=== PATIENT | male | born 1985 | race Caucasian/White ===

== ENCOUNTER 2017-03-26 11:36 | Emergency (ER) | payer OTHER ==
[2017-03-26] MEDS ORDERED: Albuterol-Ipratrop 3 mg / 0.5 (3 ml) UD ONE (11:50)
[2017-03-26 11:51] VITALS: BMI 48.6
[2017-03-26 11:54] VITALS: TEMP 98.5
[2017-03-26] MEDS: Albuterol-Ipratrop 3 mg / 0.5 (3 ml) UD IH SCH ×3 (11:55→12:26)
--- NOTE | 2017-03-26 12:07 | ED PDOC ---
Arrival/HPI - General Chief Complaint: Cough, Cold, Congestion Time Seen by Provider: 03/26/17 11:50 Historian: Patient - History of Present Illness Narrative History of Present Illness (Text): 03/26/17 12:04 A 31 year old male with no significant past medical history, presents tot he emergency department with over 1 week duration shortness of breath and cough. The patient states that he has not had a history of asthma. The patient denies fevers, chills, headache, dizziness, chest pain, abdominal pain, nausea, vomiting, diarrhea, back pain, neck pain, urinary/bowel changes, or any other complaint. Time/Duration: > week Symptom Onset: Sudden Symptom Course: Unchanged Activities at Onset: Rest, Light Context: Home Past Medical History - Provider Review Nursing Documentation Reviewed: Yes - Infectious Disease Hx of Infectious Diseases: None - Tetanus Immunization Tetanus Immunization: Unknown - Pulmonary Hx Asthma: Yes - Psychiatric Hx Depression: No Hx Emotional Abuse: No Hx Physical Abuse: No Hx Substance Use: No - Surgical History Hx Cholecystectomy: Yes - Anesthesia Hx Anesthesia: Yes Hx Anesthesia Reactions: No Hx Malignant Hyperthermia: No - Suicidal Assessment Feels Threatened In Home Enviroment: No Family/Social History - Physician Review Nursing Documentation Reviewed: Yes Family/Social History: No Known Family HX Smoking Status: Current Some Days Smoker Hx Alcohol Use: Yes Frequency of alcohol use: Socially Hx Substance Use: No Allergies/Home Meds Allergies/Adverse Reactions: Allergies No Known Allergies Allergy (Verified 03/26/17 11:55) Review of Systems - Physician Review All systems were reviewed & negative as marked: Yes - Review of Systems Constitutional: absent: Fevers Respiratory: SOB, Cough Cardiovascular: absent: Chest Pain Gastrointestinal: absent: Abdominal Pain, Stool Changes, Diarrhea, Nausea, Vomiting Genitourinary Male: absent: Urinary Output Changes Musculoskeletal: absent: Back Pain, Neck Pain Neurological: absent: Headache, Dizziness Physical Exam Vital Signs Reviewed: Yes Vital Signs Temp Pulse Resp BP Pulse Ox 03/26/17 14:22 78 18 133/78 96 03/26/17 13:38 88 17 135/84 94 L 03/26/17 11:54 21 91 L 03/26/17 11:53 98.5 F 94 H 21 98/60 L 91 L 03/26/17 11:36 98.3 F 95 H 22 98/68 L 91 L Temperature: Afebrile Blood Pressure: Hypotensive Pulse: Tachycardic Respiratory Rate: Normal Appearance: Positive for: Well-Appearing, Non-Toxic, Comfortable Pain Distress: None Mental Status: Positive for: Alert and Oriented X 3 - Systems Exam Head: Present: Atraumatic, Normocephalic Extroacular Muscles: Present: EOMI Conjunctiva: Present: Normal Mouth: Present: Moist Mucous Membranes Neck: Present: Normal Range of Motion Respiratory/Chest: Present: Wheezes Cardiovascular: Present: Regular Rate and Rhythm, Normal S1, S2. No: Murmurs Abdomen: Present: Normal Bowel Sounds. No: Tenderness, Distention, Peritoneal Signs Back: Present: Normal Inspection Upper Extremity: Present: Normal Inspection. No: Cyanosis, Edema Lower Extremity: Present: Normal Inspection. No: Edema Neurological: Present: GCS=15, CN II-XII Intact, Speech Normal Skin: Present: Warm, Dry, Normal Color. No: Rashes Psychiatric: Present: Alert, Oriented x 3, Normal Insight, Normal Concentration Medical Decision Making ED Course and Treatment: 03/26/17 12:08 Impression: A 31 year old male presents to the emergency department with over 1 week duration cough and shortness of breath. Plan: -- Chest X-ray -- Labs -- Urinalysis -- Duoneb and SOLU-Medrol -- Reassess and disposition Prior Visits: Notes and results from previous visits were reviewed. Patient was last seen in the emergency department on 11/10/12. The patient was evaluated in the emergency department for nausea, vomiting, diarrhea. The patient was discharged home. Progress Notes: 03/26/17 13:40: Patient was reassessed and states that he feels much better. The wheezing has improved, but has not fully resolved. Admission was offered, but the patient declined because he states he has to work. O2 status: 95%. CHEST X-RAY Dictator : Shanna Marte MD Report Date : 03/26/2017 13:22:58 IMPRESSION: No active pulmonary disease. - Lab Interpretations Lab Results: 03/26/17 12:18 03/26/17 12:18 Lab Results 03/26/17 12:18: Sodium 142, Potassium 4.1, Chloride 107, Carbon Dioxide 23, Anion Gap 16, BUN 16, Creatinine 0.8, Est GFR ( Amer) > 60, Est GFR (Non- Af Amer) > 60, Random Glucose 103, Calcium 9.5, Total Bilirubin 2.0 H, AST 36, ALT 69 H, Alkaline Phosphatase 75, Total Protein 8.3, Albumin 4.5, Globulin 3.8 , Albumin/Globulin Ratio 1.2 03/26/17 12:18: WBC 10.4, RBC 5.55, Hgb 16.5, Hct 50.6, MCV 91.2, MCH 29.7, MCHC 32.6, RDW 13.5, Plt Count 303, MPV 11.7 H, Gran % 57.4, Lymph % (Auto) 30.1 , [place] % (Auto) 4.4, Eos % (Auto) 7.8 H, Baso % (Auto) 0.3, Gran # 5.94, Lymph # 3.1, [place] # 0.5, Eos # 0.8 H, Baso # 0.03 I have reviewed the lab results: Yes - RAD Interpretation Radiology Orders: 03/26/17 11:57 CHEST PORTABLE [RAD] Stat - Medication Orders Current Medication Orders: Discontinued Medications Albuterol/Ipratropium (Duoneb 3 Mg/0.5 Mg (3 Ml) Ud) 3 ml IH Q15M STEW Stop: 03/26/17 12:31 Last Admin: 03/26/17 12:26 Dose: 3 ml Methylprednisolone (Solu-Medrol) 125 mg IVP STAT STA Stop: 03/26/17 11:58 Last Admin: 03/26/17 12:10 Dose: 125 mg IVP Administration Document 03/26/17 12:10 ELVIRA (Rec: 03/26/17 12:10 ELVIRA [id number]) Charges for Administration # of IVP Administrations 1 - Scribe Statement The provider has reviewed the documentation as recorded by the Shashankibyanet Corbett Provider Scribe Attestation: All medical record entries made by the Scribe were at my direction and personally dictated by me. I have reviewed the chart and agree that the record accurately reflects my personal performance of the history, physical exam, medical decision making, and the department course for this patient. I have also personally directed, reviewed, and agree with the discharge instructions and disposition. Disposition/Present on Arrival - Present on Arrival Any Indicators Present on Arrival: No History of DVT/PE: No History of Uncontrolled Diabetes: No Urinary Catheter: No History of Decub. Ulcer: No History Surgical Site Infection Following: None - Disposition Have Diagnosis and Disposition been Completed?: Yes Diagnosis: Asthmatic bronchitis Disposition: HOME/ ROUTINE Disposition Time: 04:00 Condition: STABLE Discharge Instructions (ExitCare): Asthma (ED), Acute Bronchitis (ED) Additional Instructions: please follow up with your doctor. return to er with wrosening symptoms or concerns. Prescriptions: Albuterol 0.083% [Albuterol 0.083% Inhal Sharla (2.5 mg/3 ml) UD] 2.5 mg IH Q4 PRN #30 neb PRN Reason: Wheezing Nebulizer [Aeroeclipse II] 1 each MC Q4 PRN #1 each PRN Reason: Wheezing Nebulizer Accessories [Adult Aerosol Mask] 1 each MC Q4 PRN #1 each PRN Reason: Wheezing Prednisone 50 mg PO DAILY #5 tablet Referrals: Matilde Lewis MD [Primary Care Provider] - Follow up with primary Forms: [employer] (Egyptian)
[2017-03-26 12:51] LABS: BASO # 0.03 K/mm3 (0.0-2.0); BASO % 0.3 % (0.0-3.0); EOS # 0.8 (0.0-0.7); EOS % 7.8 % (1.5-5.0); GRAN # 5.94 (1.4-6.5); GRAN % 57.4 % (50.0-68.0); HEMATOCRIT 50.6 % (42.0-52.0); LYMPH # 3.1 (1.2-3.4); LYMPH % 30.1 % (22.0-35.0); MEAN CELL VOLUME 91.2 fl (80.0-105.0); MEAN CORPUSCULAR HEMOGLOBIN 29.7 pg (25.0-35.0); MEAN CORPUSCULAR HGB CONC 32.6 g/dl (31.0-37.0); MEAN PLATELET VOLUME 11.7 fl (7.0-11.0); MONO # 0.5 (0.1-0.6); MONO % 4.4 % (1.0-6.0); RED CELL DISTRIBUTION WIDTH 13.5 % (11.5-14.5); WHITE BLOOD COUNT 10.4 10^3/ul (4.5-11.0)
[2017-03-26 12:55] LABS: ALB/GLOB RATIO 1.2 (1.1-1.8); ALKALINE PHOSPHATASE 75 U/L (38-126); ALT/SGPT 69 U/L (7-56); AST/SGOT 36 U/L (17-59); BLOOD UREA NITROGEN 16 mg/dL (7-21); CALCIUM 9.5 mg/dL (8.4-10.5); CARBON DIOXIDE 23 mmol/L (21-33); CHLORIDE 107 mmol/L (98-107); GFR AFRICAN-AMERICAN > 60; GLUCOSE,RANDOM 103 mg/dL (70-110); POTASSIUM 4.1 mmol/L (3.6-5.0); SODIUM 142 mmol/L (132-148); TOTAL PROTEIN 8.3 g/dL (5.8-8.3)
--- NOTE | 2017-03-26 13:24 | RAD ---
HISTORY: cough COMPARISON: No prior. FINDINGS: LUNGS: The lungs are well inflated and clear. PLEURA: No significant pleural effusion identified, no pneumothorax apparent. CARDIOVASCULAR: Normal. OSSEOUS STRUCTURES: No significant abnormalities. VISUALIZED UPPER ABDOMEN: Normal. OTHER FINDINGS: None. IMPRESSION: No active pulmonary disease.
[2017-03-26 14:23] VITALS: BP 133/78; PULSE 78; RESP 18; O2SAT 96
== END 2017-03-26 14:25 | disposition home or self-care (01) ==
LOC: ED 11:36
DX: J45.909 Unspecified asthma, uncomplicated (principal); F17.210 Nicotine dependence, cigarettes, uncomplicated
CPT/HCPCS: 71010; 80053; 85025; 94150; 94640; 96374; 99283; J2930

== ENCOUNTER 2018-06-14 15:34 | Emergency (ER) | payer OTHER ==
[2018-06-14 18:03] VITALS: BMI 49.4
[2018-06-14 18:04] VITALS: BP 121/81; RESP 18; TEMP 98.7
[2018-06-14] MEDS ORDERED: Sodium Chloride 0.9% 1,000 ML IV STA (20:17)
[2018-06-14 20:42] LABS: BASO # 0.01 K/mm3 (0.0-2.0); BASO % 0.1 % (0.0-3.0); EOS # 0.2 (0.0-0.7); HEMOGLOBIN 15.4 g/dL (14.0-18.0); LYMPH # 2.6 (1.2-3.4); MEAN CELL VOLUME 91.4 fl (80.0-105.0); MEAN CORPUSCULAR HEMOGLOBIN 29.6 pg (25.0-35.0); MEAN CORPUSCULAR HGB CONC 32.4 g/dl (31.0-37.0); MEAN PLATELET VOLUME 11.3 fl (7.0-11.0); MONO # 0.4 (0.1-0.6); RBC 5.21 10^6/uL (3.5-6.1); RED CELL DISTRIBUTION WIDTH 13.3 % (11.5-14.5)
[2018-06-14 20:57] LABS: ALB/GLOB RATIO 1.3 (1.1-1.8); ALBUMIN 4.3 g/dL (3.0-4.8); ALT/SGPT 33 U/L (7-56); AST/SGOT 28 U/L (17-59); BLOOD UREA NITROGEN 20 mg/dL (7-21); CALCIUM 9.6 mg/dL (8.4-10.5); GFR NON-AFRICAN AMERICAN > 60; LIPASE 40 U/L (23-300)
--- NOTE | 2018-06-14 21:16 | ED PDOC ---
Arrival/HPI - General Chief Complaint: Abdominal Pain Time Seen by Provider: 06/14/18 19:49 Historian: Patient - History of Present Illness Narrative History of Present Illness (Text): 06/14/18 21:12 32 yo M c/o 3 day h/o nausea, upper abdominal pain and multiple episodes of diarrhea. He also adds that he slipped and fell on ice 5 days ago when he was in [place], he went to the ER that day and was evaluated in [place], was told that he had a contusion, no imaging was then. When he fell, he had no LOC, currently reports no headache, dizziness, vomiting. However the nausea, he is unsure if its due to his recent head injury. Past Medical History - Infectious Disease Hx of Infectious Diseases: None - Tetanus Immunization Tetanus Immunization: Unknown - Pulmonary Hx Asthma: Yes - Psychiatric Hx Depression: No Hx Emotional Abuse: No Hx Physical Abuse: No Hx Substance Use: No - Surgical History Hx Cholecystectomy: Yes - Anesthesia Hx Anesthesia: Yes Hx Anesthesia Reactions: No Hx Malignant Hyperthermia: No - Suicidal Assessment Feels Threatened In Home Enviroment: No Family/Social History Family/Social History: No Known Family HX Smoking Status: Current Some Days Smoker Hx Alcohol Use: Yes Hx Substance Use: No Allergies/Home Meds Allergies/Adverse Reactions: Allergies No Known Allergies Allergy (Verified 06/14/18 18:09) Review of Systems - Review of Systems Constitutional: absent: Fatigue, Fevers Respiratory: absent: SOB, Cough Cardiovascular: absent: Chest Pain, Palpitations Gastrointestinal: Abdominal Pain, Diarrhea, Nausea. absent: Vomiting Genitourinary Male: absent: Dysuria, Frequency, Hematuria Musculoskeletal: absent: Arthralgias, Back Pain, Neck Pain Skin: absent: Rash, Pruritis, Skin Lesions Neurological: absent: Headache, Dizziness Physical Exam Vital Signs Temp Pulse Resp BP Pulse Ox 06/14/18 18:03 98.7 F 82 18 121/81 97 Temperature: Afebrile Blood Pressure: Normal Pulse: Regular Respiratory Rate: Normal Appearance: Positive for: Well-Appearing, Non-Toxic, Comfortable Pain Distress: None Mental Status: Positive for: Alert and Oriented X 3 - Systems Exam Head: Present: Atraumatic, Normocephalic Pupils: Present: PERRL Extroacular Muscles: Present: EOMI Conjunctiva: Present: Normal Mouth: Present: Moist Mucous Membranes Neck: Present: Normal Range of Motion Respiratory/Chest: Present: Clear to Auscultation, Good Air Exchange. No: Respiratory Distress, Accessory Muscle Use Cardiovascular: Present: Regular Rate and Rhythm, Normal S1, S2. No: Murmurs Abdomen: No: Tenderness, Distention, Peritoneal Signs Back: Present: Normal Inspection Upper Extremity: Present: Normal Inspection. No: Cyanosis, Edema Lower Extremity: Present: Normal Inspection. No: Edema Neurological: Present: GCS=15, CN II-XII Intact, Speech Normal, Motor Func Grossly Intact, Normal Sensory Function Skin: Present: Warm, Dry, Normal Color. No: Rashes Psychiatric: Present: Alert, Oriented x 3, Normal Insight, Normal Concentration Medical Decision Making ED Course and Treatment: 06/14/18 21:11 Plan : - Labs - IV - NS bolus - CT head - Zofran IV / Pepcid IV Labs reviewed and wnl. CT head : No acute intracranial abnormality. Musa Beverly MD 06/15/18 00:39. On re-evaluation, patient reports improvement of symptoms, denies any pain or nausea. On exam, patient remains AAOx3, in no acute distress. Diagnostic results d/w the patient in great detail. Diagnosis of acute gastroenteritis d/w the patient. Based on history, exam and diagnostic results, plan will be for outpatient follow up. Patient instructed to follow-up with pmd in 1-2 days without fail. Advised to take medication as prescribed. Return to the emergency room at any time for any new or worsening symptoms. Patient states he fully agrees with and understands discharge instructions. States that he agrees with the plan and disposition. Verbalized and repeated discharge instructions and plan. I have given the patient opportunity to ask any additional questions. - Lab Interpretations Lab Results: Total Bilirubin 1.0 mg/dL (0.2-1.3) 06/14/18 20:38 AST 28 U/L (17-59) 06/14/18 20:38 ALT 33 U/L (7-56) 06/14/18 20:38 Alkaline Phosphatase 60 U/L (38-126) 06/14/18 20:38 Total Protein 7.6 g/dL (5.8-8.3) 06/14/18 20:38 Albumin 4.3 g/dL (3.0-4.8) 06/14/18 20:38 Globulin 3.3 gm/dL 06/14/18 20:38 Albumin/Globulin Ratio 1.3 (1.1-1.8) 06/14/18 20:38 Lipase 40 U/L (23-300) 06/14/18 20:38 - RAD Interpretation Radiology Orders: 06/14/18 20:18 HEAD W/O CONTRAST [CT] Stat - Medication Orders Current Medication Orders: Sodium Chloride (Sodium Chloride 0.9%) 1,000 mls @ 1,000 mls/hr IV .Q1H STA Stop: 06/14/18 21:16 Last Admin: 06/14/18 20:35 Dose: 1,000 mls/hr eMAR Start Stop Document 06/14/18 20:35 SS (Rec: 06/14/18 20:[address]) Intravenous Solution Start Date 06/14/18 Start Time 20:35 End Date 06/14/18 End time 21:35 Total Infusion Time 60 Discontinued Medications Famotidine (Pepcid) 20 mg IVP STAT STA Stop: 06/14/18 20:18 Last Admin: 06/14/18 20:35 Dose: 20 mg IVP Administration Document 06/14/18 20:35 SS (Rec: 06/14/18 20:35 SS [place] [id number]-) Charges for Administration # of IVP Administrations 1 Ondansetron HCl (Zofran Inj) 4 mg IVP STAT STA Stop: 06/14/18 20:18 Last Admin: 06/14/18 20:35 Dose: 4 mg IVP Administration Document 06/14/18 20:35 SS (Rec: 06/14/18 20:[address]) Charges for Administration # of IVP Administrations 1 - 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 Disposition/Present on Arrival - Present on Arrival Any Indicators Present on Arrival: No History of DVT/PE: No History of Uncontrolled Diabetes: No Urinary Catheter: No History of Decub. Ulcer: No History Surgical Site Infection Following: None - Disposition Have Diagnosis and Disposition been Completed?: Yes Diagnosis: Acute gastroenteritis, Head injury Disposition: HOME/ ROUTINE Disposition Time: 01:30 Patient Plan: Discharge Condition: STABLE Discharge Instructions (ExitCare): Closed Head Injury (DC), Gastroenteritis (DC) Additional Instructions: Thank you for letting us take care of you today. You were treated for acute gastroenteritis, head injury. The emergency medical care you received today was directed at your acute symptoms. If you were prescribed any medication, please fill it and take as directed. It may take several days for your symptoms to resolve. Return to the Emergency Department if your symptoms worsen, do not improve, or if you have any other problems. Please contact your doctor in 2 days for re-evaluation and follow up. Bring any paperwork you were given at discharge with you along with any medications you are taking to your follow up visit. Our treatment cannot replace ongoing medical care by a primary care provider (PCP) outside of the emergency department. Thank you for allowing the [facility] team to be part of your care today. If you had a CT : A Radiologist will review the ED reading if any change in treatment is needed we will contact you. Prescriptions: Dicyclomine [Bentyl] 20 mg PO QID PRN #20 tab PRN Reason: Other Ondansetron ODT [Zofran ODT] 4 mg PO DAILY PRN #20 odt PRN Reason: Nausea/Vomiting Referrals: Matilde Lewis MD [Primary Care Provider] - Follow up with primary Forms: [employer] (Lao), WORK NOTE
[2018-06-15 01:58] VITALS: PULSE 79; O2SAT 98
--- NOTE | 2018-06-15 08:55 | CT ---
Date of service: 06/14/2018 PROCEDURE: CT HEAD WITHOUT CONTRAST. HISTORY: nausea, h/o head injury COMPARISON: None available. TECHNIQUE: Axial computed tomography images were obtained through the head/brain without intravenous contrast. Radiation dose: Total exam DLP = 1010.1 mGy-cm. This CT exam was performed using one or more of the following dose reduction techniques: Automated exposure control, adjustment of the mA and/or kV according to patient size, and/or use of iterative reconstruction technique. FINDINGS: HEMORRHAGE: No intracranial hemorrhage. BRAIN: No mass effect or edema. No atrophy or chronic microvascular ischemic changes. VENTRICLES: Unremarkable. No hydrocephalus. CALVARIUM: There is a small left parietal scalp hematoma PARANASAL SINUSES: Unremarkable as visualized. No significant inflammatory changes. MASTOID AIR CELLS: Unremarkable as visualized. No inflammatory changes. OTHER FINDINGS: The report concurs with the preliminary [facility] report IMPRESSION: No acute intracranial findings
== END 2018-06-15 01:57 | disposition home or self-care (01) ==
LOC: ED 15:34
DX: K52.9 Noninfective gastroenteritis and colitis, unspecified (principal); S09.90XD Unspecified injury of head, subsequent encounter; W00.0XXD Fall on same level due to ice and snow, subsequent encounter
CPT/HCPCS: 70450; 80053; 83690; 83735; 85025; 96361; 96374; 96375; 99283; J2405; J7030